=== PATIENT | female | born 1965 | race African-American/Black ===

== ENCOUNTER 2024-06-07 16:08 | Inpatient (IN) | payer OTHER ==
[~2024-06-07] VITALS: Ht 152.4 cm; Wt 66.2 kg
[2024-06-07 16:24] VITALS: O2SAT 97
[2024-06-07] MEDS: ONDANSETRON HCL 4MG/2ML INJ IV STA ×2 (17:46→23:50)
[2024-06-07] MEDS: MORPHINE SULFATE 4 MG/ML INJ (FOR IV/IM USE) IV STA ×2 (17:46→18:51)
[2024-06-07 19:50] LABS: BASOPHILS % 1.6 % (0.0-2.0); EOSINOPHILS % 2.8 % (0.0-5.0); HEMATOCRIT. 34.7 % (36.0-48.0); HEMOGLOBIN. 11.6 g/dL (12.0-16.0); LYMPHOCYTES % 23.8 % (20.0-50.0); MEAN CORPUSCULAR HEMOGLOBIN 23.8 pg (28.0-32.0); MEAN CORPUSCULAR HGB CONC 33.4 g/dL (31.0-37.0); MEAN CORPUSCULAR VOLUME 71.3 fL (81.0-99.0); MEAN PLATELET VOLUME 8.9 fl (7.4-10.4); MONOCYTES % 10.1 % (2.0-8.0); NEUTROPHILS % 61.7 % (40.0-76.0); PLATELET 345 x1000/uL (130-400); RED BLOOD CELL COUNT 4.87 mill/uL (4.2-5.4); RED CELL DISTRIBUTION WIDTH 22.6 % (11.6-14.6); WHITE BLOOD COUNT 5.1 x1000/uL (4.5-11.0)
[2024-06-07 19:52] LABS: DIFFERENTIAL COMMENT 1
[2024-06-07 19:54] LABS: CHLORIDE 105 mEq/L (98-107); POTASSIUM 3.9 mEq/L (3.5-5.1); SODIUM 137 mEq/L (136-145)
[2024-06-07 19:55] LABS: CARBON DIOXIDE 24 mEq/L (21-32)
[2024-06-07 19:58] LABS: D-DIMER 2.91 mg/L FEU (<0.50); PROTHROMBIN TIME 10.9 sec (9.6-11.0)
[2024-06-07 20:00] LABS: CREATININE 0.7 mg/dL (0.6-1.0); GLUCOSE 84 mg/dL (70-105); UREA NITROGEN BLOOD 8 mg/dL (9-23)
[2024-06-07 20:11] LABS: TROPONIN I HIGH SENSITIVITY < 4 ng/L (3.0-34)
[2024-06-08] MEDS: IOHEXOL-350 100 ML BOTTLE ONE (02:19)
[2024-06-08 08:00] VITALS: BP 115/75; PULSE 100; RESP 18; TEMP 36.6696; O2SAT 99
[2024-06-08] MEDS ORDERED: TRAM50TA3 PO (08:53)
[2024-06-08] MEDS ORDERED: [UNRECOGNIZED DRUG - CODE] TP (08:53)
[2024-06-08] MEDS ORDERED: INSU100I94 SUBCUT (08:53)
[2024-06-08] MEDS ORDERED: DEXTROSE 50% WATER 50ML SYRINGE IV PRN (11:30)
[2024-06-08 12:00] VITALS: BP 112/70; PULSE 99; RESP 18; TEMP 36.72516; O2SAT 99
[2024-06-08] MEDS: BLOOD SUGAR DIAGNOSTIC STRIP TEST SCH (12:32)
[2024-06-08] MEDS: INSULIN LISPRO 100 UNITS/ML SUBCUT SCH (12:53)
[2024-06-08 16:00] VITALS: BP 111/69; PULSE 103; RESP 18; TEMP 36.55848; O2SAT 98
[2024-06-08] MEDS: HYDROCODONE/ACETAMINOPHEN 5/325MG TABLET PO PRN (17:57)
[2024-06-08 19:46] VITALS: BP 130/70; PULSE 98; RESP 18; TEMP 36.696
[2024-06-08 20:00] VITALS: BP 106/67; PULSE 100; RESP 20; TEMP 36.61404; O2SAT 98
[2024-06-09 04:00] VITALS: BP 107/70; PULSE 95; RESP 20; TEMP 36.61404; O2SAT 95
[2024-06-09 08:00] VITALS: BP 125/67; PULSE 101; RESP 20; TEMP 36.50292; O2SAT 92
[2024-06-09 12:00] VITALS: BP 102/64; PULSE 98; RESP 20; TEMP 36.61404; O2SAT 97
[2024-06-09] MEDS: ENOXAPARIN 40MG/0.4ML SYR SUBCUT SCH (15:13)
[2024-06-09 16:00] VITALS: BP 105/72; PULSE 98; RESP 20; TEMP 36.61404; O2SAT 96
[2024-06-09 20:00] VITALS: BP 102/68; PULSE 92; RESP 18; TEMP 36.50292; O2SAT 98
[2024-06-09] MEDS: INSULIN GLARGINE 100 UNITS/ML SUBCUT SCH (21:44)
[2024-06-09] MEDS ORDERED: INSULIN GLARGINE 100 UNITS/ML SUBCUT SCH (22:00)
[2024-06-10] VITALS: BP 117/65; PULSE 89; RESP 18; TEMP 36.6696; O2SAT 98
[2024-06-10 04:00] VITALS: BP 120/80; PULSE 90; RESP 19; TEMP 36.6696; O2SAT 100
[2024-06-10 06:29] LABS: CARBON DIOXIDE 27 mEq/L (21-32); CHLORIDE 102 mEq/L (98-107); POTASSIUM 3.9 mEq/L (3.5-5.1); SODIUM 135 mEq/L (136-145)
[2024-06-10 06:30] LABS: CALCIUM 9.8 mg/dL (8.7-10.4)
[2024-06-10 06:34] LABS: CREATININE 0.7 mg/dL (0.6-1.0); GLUCOSE 129 mg/dL (70-105)
[2024-06-10 06:35] LABS: UREA NITROGEN BLOOD 9 mg/dL (9-23)
[2024-06-10 07:32] LABS: BASOPHILS % 0.3 % (0.0-2.0); DIFFERENTIAL COMMENT 0; EOSINOPHILS % 3.2 % (0.0-5.0); HEMATOCRIT. 33.9 % (36.0-48.0); HEMOGLOBIN. 10.8 g/dL (12.0-16.0); LYMPHOCYTES % 15.2 % (20.0-50.0); MEAN CORPUSCULAR HEMOGLOBIN 22.8 pg (28.0-32.0); MEAN CORPUSCULAR VOLUME 71.3 fL (81.0-99.0); MEAN PLATELET VOLUME 9.3 fl (7.4-10.4); MONOCYTES % 13.1 % (2.0-8.0); NEUTROPHILS % 68.2 % (40.0-76.0); PLATELET 354 x1000/uL (130-400); RED BLOOD CELL COUNT 4.76 mill/uL (4.2-5.4); RED CELL DISTRIBUTION WIDTH 21.8 % (11.6-14.6); WHITE BLOOD COUNT 5.7 x1000/uL (4.5-11.0)
[2024-06-10 08:00] VITALS: BP 120/72; PULSE 98; RESP 20; TEMP 36.33624; O2SAT 94
[2024-06-10] MEDS: INSULIN GLARGINE 100 UNITS/ML SUBCUT SCH (08:14)
[2024-06-10 12:00] VITALS: BP 117/76; PULSE 104; RESP 18; TEMP 36.28068; O2SAT 93
[2024-06-10 16:00] VITALS: BP 108/72; PULSE 93; RESP 18; TEMP 36.33624; O2SAT 92
[2024-06-10] MEDS ORDERED: HYDR-4009 MT (16:14)
[2024-06-10] MEDS ORDERED: INSULIN GLARGINE 100 UNITS/ML SUBCUT SCH (22:00)
== END 2024-06-10 18:18 | disposition home or self-care (01) | DRG 552 ==
LOC: ER 16:08 → 8WST 23:03 → EDBEDREQ 23:08
PROVIDERS: ADMIT Internal Medicine; ATTEND Internal Medicine
DX: M54.6 Pain in thoracic spine (principal); M41.9 Scoliosis, unspecified; E11.9 Type 2 diabetes mellitus without complications; Z85.3 Personal history of malignant neoplasm of breast; Z85.118 Personal history of other malignant neoplasm of bronchus and lung
CPT/HCPCS: 36415; 71275; 80048; 82962; 83036; 83880; 84484; 85025; 85379; 93005; 99285; J1650; J1815; J2270; J2405; Q9967